=== PATIENT | female | born 1930 | race Caucasian/White ===

== ENCOUNTER 2017-03-21 21:18 | Emergency (ER) | payer OTHER ==
[~2017-03-21] VITALS: Ht 160 cm; Wt 67.6 kg
--- NOTE | 2017-03-21 21:27 | NUR ---
PT BIBRA FROM HOME FOR HYPOTENSION AND GENERALIZED WEAKNESS. PT AOX3 RR EVEN AND UNLABORED. NO SOB NOTED. NAD NOTED. NO NVD AT THIS TIME. PT GOWNED AND PLACED ON MONITOR . WAITING FOR MD AVILA. PER EMS PLACED IV ON LEFT AC 18G, INTACT AND PATENT. NO S/S INFECTION OF INFILTRATION NOTED. PER EMS GAVE IV BOLUS 1L NS TRANFUSING ON ADMISSION. LABS DRAWN. CALLED LAB FOR POLICY ANALYST.
--- NOTE | 2017-03-21 21:30 | NUR ---
PER EMS, 500CC IVF BOLUS TRANSFUSED. MEDICATION HELD.
--- NOTE | 2017-03-21 21:45 | NUR ---
RADIOLOGY AT BEDSIDE FOR CXR
[2017-03-21 21:49] LABS: BASOPHILS % (AUTO) 0.1 % (0.0-2.0); EOSINOPHILS % (AUTO) 0.1 % (0.0-6.0); HEMATOCRIT 36 % (33-45); HEMOGLOBIN 12.1 g/dL (11.5-14.8); LYMPHOCYTES # (AUTO) 0.5 /CMM (0.8-4.8); LYMPHOCYTES % (AUTO) 2.4 % (20.0-44.0); MEAN CORPUSCULAR HEMOGLOBIN 29 PG (26.0-33.0); MEAN CORPUSCULAR HGB CONC 34 g/dl (31.0-36.0); MEAN CORPUSCULAR VOLUME 84 fL (82-100); MONOCYTES # (AUTO) 0.7 /CMM (0.1-1.30); MONOCYTES % (AUTO) 3.6 % (2.0-12.0); NEUTROPHILS # (AUTO) 17.7 /CMM (1.8-8.9); NEUTROPHILS % (AUTO) 93.8 % (43.0-81.0); PLATELET COUNT (AUTO) 210 /CMM (150-450); RDW COEFFICIENT OF VARIATION 13.6 (11.5-15.0); RED BLOOD CELL COUNT(AUTO) 4.24 MIL/uL (4.0-5.2); WHITE BLOOD COUNT (AUTO) 18.9 K/uL (4.3-11.0)
[2017-03-21 21:58] LABS: CALCIUM, SERUM 8.5 mg/dL (8.5-10.1); CARBON DIOXIDE 25 mmol/L (21-32); CHLORIDE 103 mmol/L (98-107); CREATININE 1.3 mg/dL (0.6-1.3); GLUCOSE 224 mg/dL (74-106); POTASSIUM 3.5 mmol/L (3.5-5.1); SODIUM SERUM 138 mmol/L (136-145); UREA NITROGEN, BLOOD 18 mg/dL (7-18)
[2017-03-21 22:01] LABS: INR 1.19 (0.87-1.13); PROTHROMBIN TIME 12.4 SECS (9.5-12.7)
[2017-03-21 22:03] LABS: ALANINE AMINOTRANSFERASE 18 U/L (12-78); ALBUMIN 2.7 g/dL (3.4-5.0); ALKALINE PHOSPHATASE 73 U/L (46-116); ASPARTATE AMINOTRANSFERASE 26 U/L (15-37); BILIRUBIN,DIRECT 0.1 mg/dL (0.0-0.2); BILIRUBIN,TOTAL 0.5 mg/dL (0.2-1.0); TOTAL PROTEIN, SERUM 6.8 g/dL (6.4-8.2)
--- NOTE | 2017-03-21 22:12 | NUR ---
FAMILY AT BEDSIDE
--- NOTE | 2017-03-21 22:14 | NUR ---
PT TO CT.
[2017-03-21 22:19] LABS: TROPONIN I 1.406 ng/mL (0.00-0.056)
--- NOTE | 2017-03-21 22:21 | NUR ---
PT RETURNED FROM CT. DR. NELSON AT BEDSIDE SPEAKING TO PT/FAMILY
--- NOTE | 2017-03-21 22:45 | NUR ---
URINE COLLECTED VIA STRAIGHT CATH, PER . CALLED LAB FOR CHIP CRUSHER OPERATOR.
[2017-03-21] MEDS ORDERED: ASPIRIN 325 MG TABLET ONE (22:48)
[2017-03-21] MEDS ORDERED: IV NS 0.9% 500 ML BAG IV ONE (23:00)
[2017-03-21] MEDS ORDERED: ASPIRIN 325 MG TABLET PO ONE (23:00)
[2017-03-21 23:02] LABS: APPEARANCE,URINE CLEAR (CLEAR); BILIRUBIN,URINE 1+ (NEGATIVE); BLOOD, URINE NEGATIVE Ery/uL (NEGATIVE); COLOR,URINE DARK YELLOW (YELLOW); KETONES,URINE NEGATIVE (NEGATIVE); LEUKOCYTE ESTERASE ,URINE NEGATIVE (NEGATIVE); NITRITE, URINE NEGATIVE (NEGATIVE); PH,URINE 5.5 (5.0-8.0); PROTEIN,URINE TRACE mg/dl (NEGATIVE); UGLUCOSE NEGATIVE (NEGATIVE); UROBILINOGEN,URINE 0.2 EU/dL (0.2)
--- NOTE | 2017-03-21 23:08 | NUR ---
[facility]-DR CALL.
[2017-03-21 23:09] LABS: BACTERIA,URINE Few /HPF (None Seen); RBC,URINE 0-2 /HPF (0-2); SQUAMOUS EPITHELIAL CELL,UR Rare /HPF (None Seen); WBC,URINE 0-2 /HPF (0-3)
--- NOTE | 2017-03-21 23:35 | NUR ---
RUN OF V-TACH NOTED ON TELE MONITOR. PRINT OUT GIVEN TO DR. NELSON.
--- NOTE | 2017-03-21 23:36 | NUR ---
CALLED [facility]
--- NOTE | 2017-03-22 00:01 | NUR ---
DR. NELSON SPOKE TO DR. NAGEL REGARDING TRANSFER TO [place].
--- NOTE | 2017-03-22 00:11 | NUR ---
LAB AT BEDSIDE FOR 2ND TROP DRAW
--- NOTE | 2017-03-22 00:57 | NUR ---
SPOKE TO JACKY PRICE FROM [facility]; INFORMED 2ND TROPONIN DRAW RESULTS 1.550
--- NOTE | 2017-03-22 01:09 | NUR ---
JOANNE ([facility]) [phone]
--- NOTE | 2017-03-22 01:41 | NUR ---
RECEIVED CALL FROM MILTON @ [facility]. TRANSFER INFO: [facility] ACCEPTED BY DR. CUMMINGS NUMBER FOR REPORT AMBULANCE ETA: [phone]
--- NOTE | 2017-03-22 01:59 | NUR ---
REPORT GIVEN TO JACKY ROSS FROM [facility].
[2017-03-22] MEDS ORDERED: IV NS 0.9% 500 ML BAG IV ONE (02:00)
--- NOTE | 2017-03-22 02:37 | NUR ---
REPORT GIVEN TO EMT FROM [facility]. PT AOX3 VSS. IV INTACT AND PATENT. NO S/S INFECTION OR INFILTRATION NOTED. PT TO BE TRANSFERRED TO [facility] FOR ELIGIO. Addendum: 03/22/17 at 0301 by BONNIE PT WITH ALL BELONGINGS.
[2017-03-22 02:42] VITALS: BP 94/53
== END 2017-03-22 03:03 ==
LOC: ER 21:20
DX: I21.4 Non-ST elevation (NSTEMI) myocardial infarction (principal); I47.2 Ventricular tachycardia; R53.1 Weakness; R51 Headache
CPT/HCPCS: 36415 ×2; 70450; 71010; 80048; 80076; 81001; 83605; 84484 ×2; 85025; 85730; 87086; 93005; 99285; A4606; J7040 ×2; 81000-TC; Z7610